=== PATIENT | female | born 1950 | race Caucasian/White ===

== ENCOUNTER 2017-09-07 12:18 | Emergency (ER) | payer MEDICARE, OTHER ==
--- NOTE | 2017-09-07 12:22 | EDM.PDOC ---
ED HPI GENERAL MEDICAL PROBLEM - General Chief Complaint: General Stated Complaint: HEADACHE CANT BREATHE Time Seen by Provider: 09/07/17 12:22 Source of Information: Reports: Patient, RN, RN Notes Reviewed History Limitations: Reports: Other - History of Present Illness INITIAL COMMENTS - FREE TEXT/NARRATIVE: Pt sent from outpt. 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 Pt has been receiving Remicade infusions without significant side effects for several years. Pt arrives to ER by wheelchair screaming and uncooperative, shouting, "help me, help me". Pt clearly hyperventilating, but alert, oriented x3 with GCS 15. Pt c/o severe headache, feels like her head will "pop off". Onset: Today, Sudden Duration: Constant Location: Reports: Head Quality: Reports: Ache, Pressure Severity: Severe Improves with: Reports: None Worsens with: Reports: None Head Pain Score (Numeric/FACES): 10 - Related Data Allergies Allergy/AdvReac Type Severity Reaction Status Date / Time aspirin Allergy Anaphylactic Verified 09/07/17 13:53 Shock cephalexin Allergy Rash Verified 09/07/17 13:53 NSAIDS (Non-Steroidal Allergy Hives Verified 09/07/17 13:53 Anti-Inflamma ondansetron Allergy Swelling Verified 09/07/17 13:53 Sulfa (Sulfonamide Allergy Rash Verified 09/07/17 13:53 Antibiotics) Past Medical History Musculoskeletal History: Reports: RA Social & Family History - Family History Family Medical History: Unobtainable - Living Situation & Occupation Living situation: Reports: , with Spouse Occupation: Retired ED ROS GENERAL - Review of Systems Review Of Systems: ROS reveals no pertinent complaints other than HPI. ED EXAM, GENERAL - Physical Exam Exam: See Below Exam Limited By: No Limitations General Appearance: Alert, Anxious, Obese Eye Exam: Bilateral Eye: EOMI, Normal Inspection, PERRL Ears: Normal External Exam, Normal Canal, Hearing Grossly Normal, Normal TMs Nose: Normal Inspection, Normal Mucosa, No Blood Throat/Mouth: Normal Voice, No Airway Compromise Head: Atraumatic, Normocephalic Neck: Normal Inspection, Supple, Non-Tender, Full Range of Motion Respiratory/Chest: No Respiratory Distress, Lungs Clear, Normal Breath Sounds, No Accessory Muscle Use, Chest Non-Tender Cardiovascular: Regular Rate, Rhythm, No Edema, Tachycardia GI/Abdominal: Normal Bowel Sounds, Soft, Non-Tender, No Distention. No: Guarding, Rigid, Rebound (Female) Exam: Deferred Rectal (Female) Exam: Deferred Extremities: Normal Inspection, Normal Range of Motion, Non-Tender, Normal Capillary Refill, No Pedal Edema Neurological: Alert, Oriented, CN II-XII Intact, Normal Cognition, No Motor/ Sensory Deficits Psychiatric: Anxious Skin Exam: Warm, Dry, Intact, Normal Color, No Rash EKG INTERPRETATION EKG Date: 09/07/17 Time: 12:48 Rhythm: Other (sinus tach) Rate (Beats/Min): 103 [place]: Normal P-Wave: Present QRS: Other (inferior Q-waves) ST-T: Depressed QT: Normal Comparison: NA - No Prior EKG Course - Vital Signs Last Recorded V/S: Last Vital Signs Temp 35.5 C 09/07/17 12:18 Pulse 103 H 09/07/17 12:18 Resp 32 H 09/07/17 12:18 BP 171/83 H 09/07/17 12:18 Pulse Ox 100 09/07/17 12:18 - Orders/Labs/Meds Orders: Active Orders 24 hr Category Date Time Status Blood Glucose Check, Bedside [RC] ONETIME Care 09/07/17 12:32 Active EKG 12 Lead [EKG Documentation Completion] [RC] STAT Care 09/07/17 12:32 Active Peripheral IV Care [RC] . DIRECTED Care 09/07/17 12:34 Active UA W/MICROSCOPIC [URIN] Stat Lab 09/07/17 13:01 Ordered Peripheral IV Insertion Adult [OM.PC] Stat Oth 09/07/17 12:32 Ordered Labs: Laboratory Tests 09/07/17 09/07/17 09/07/17 Range/Units 12:38 12:38 12:38 WBC 13.3 H (5.0-10.0) 10^3/uL RBC 4.23 (4.2-5.4) 10^6/uL Hgb 12.9 (12.0-16.0) g/dL Hct 39.9 (37.0-47.0) % MCV 94.3 (80-100) fL MCH 30.5 (27.0-34.0) pg MCHC 32.3 L (33.0-35.0) g/dL Plt Count 312 (150-450) 10^3/uL Neut % (Auto) 58.7 (42.2-75.2) % Lymph % (Auto) 34.8 (20.5-50.1) % [place] % (Auto) 5.0 (2-8) % Eos % (Auto) 0.7 L (1.0-3.0) % Baso % (Auto) 0.8 (0.0-1.0) % PT (9.0-12.0) SEC INR (0.9-1.2) APTT (22.0-34.0) SEC Sodium 138 (135-145) mmol/L Potassium 4.1 (3.6-5.0) mmol/L Chloride 106 (101-111) mmol/L Carbon Dioxide 21.0 (21.0-31.0) mmol/L Anion Gap 15.1 BUN 22 H (7-18) mg/dL Creatinine 0.7 (0.6-1.3) mg/dL Est Cr Clr Drug Dosing TNP Estimated GFR (MDRD) > 60 BUN/Creatinine Ratio 31.42 Glucose 227 H (74-105) mg/dL Calcium 9.2 (8.4-10.2) mg/dl Total Bilirubin 0.4 (0.2-1.0) mg/dL AST 54 H (10-42) IU/L ALT 32 (10-60) IU/L Alkaline Phosphatase 107 (42-121) IU/L Creatine Kinase 177 H (26-174) IU/L Troponin I < 0.02 (0.00-0.02) ng/ml C-Reactive Protein 0.8 (0.0-1.3) mg/dL Total Protein 8.5 H (6.7-8.2) g/dl Albumin 4.0 (3.2-5.5) g/dl Globulin 4.5 Albumin/Globulin Ratio 0.89 Urine Color (YELLOW) Urine Appearance (CLEAR) Urine pH (5.0-9.0) Ur Specific [place] (1.005-1.030) Urine Protein (NEGATIVE) Urine Glucose (UA) (NEGATIVE) Urine Ketones (NEGATIVE) Urine Occult Blood (NEGATIVE) Urine Nitrite (NEGATIVE) Urine Bilirubin (NEGATIVE) Urine Urobilinogen (0.2-1.0) mg/dL Ur Leukocyte Esterase (NEGATIVE) Urine RBC /HPF Urine WBC (0-5/HPF) /HPF Ur Epithelial Cells /HPF Amorphous Sediment (0/HPF) /HPF Urine Bacteria (0-FEW/HPF) /HPF Urine Mucus /LPF 09/07/17 09/07/17 Range/Units 13:01 13:05 WBC (5.0-10.0) 10^3/uL RBC (4.2-5.4) 10^6/uL Hgb (12.0-16.0) g/dL Hct (37.0-47.0) % MCV (80-100) fL MCH (27.0-34.0) pg MCHC (33.0-35.0) g/dL Plt Count (150-450) 10^3/uL Neut % (Auto) (42.2-75.2) % Lymph % (Auto) (20.5-50.1) % [place] % (Auto) (2-8) % Eos % (Auto) (1.0-3.0) % Baso % (Auto) (0.0-1.0) % PT 9.7 (9.0-12.0) SEC INR 1.0 (0.9-1.2) APTT 19.9 L (22.0-34.0) SEC Sodium (135-145) mmol/L Potassium (3.6-5.0) mmol/L Chloride (101-111) mmol/L Carbon Dioxide (21.0-31.0) mmol/L Anion Gap BUN (7-18) mg/dL Creatinine (0.6-1.3) mg/dL Est Cr Clr Drug Dosing Estimated GFR (MDRD) BUN/Creatinine Ratio Glucose (74-105) mg/dL Calcium (8.4-10.2) mg/dl Total Bilirubin (0.2-1.0) mg/dL AST (10-42) IU/L ALT (10-60) IU/L Alkaline Phosphatase (42-121) IU/L Creatine Kinase (26-174) IU/L Troponin I (0.00-0.02) ng/ml C-Reactive Protein (0.0-1.3) mg/dL Total Protein (6.7-8.2) g/dl Albumin (3.2-5.5) g/dl Globulin Albumin/Globulin Ratio Urine Color Yellow (YELLOW) Urine Appearance Slightly cloudy (CLEAR) Urine pH 6.0 (5.0-9.0) Ur Specific [place] 1.025 (1.005-1.030) Urine Protein >=300 H (NEGATIVE) Urine Glucose (UA) 500 H (NEGATIVE) Urine Ketones Trace H (NEGATIVE) Urine Occult Blood Trace-lysed H (NEGATIVE) Urine Nitrite Negative (NEGATIVE) Urine Bilirubin Negative (NEGATIVE) Urine Urobilinogen 0.2 (0.2-1.0) mg/dL Ur Leukocyte Esterase Negative (NEGATIVE) Urine RBC 0-5 /HPF Urine WBC 5-10 H (0-5/HPF) /HPF Ur Epithelial Cells Occasional /HPF Amorphous Sediment Few (0/HPF) /HPF Urine Bacteria Few (0-FEW/HPF) /HPF Urine Mucus Few H /LPF Meds: Medications Discontinued Medications Generic Name Dose Route Start Last Admin Trade Name Freq PRN Reason Stop Dose Admin Diazepam 10 mg 09/07/17 12:25 09/07/17 12:25 Valium IVPUSH 09/07/17 12:26 10 mg ONETIME ONE Administration Diazepam Confirm 09/07/17 12:24 09/07/17 13:24 Valium Administered 09/07/17 12:25 Not Given Dose 50 mg .ROUTE .STK-MED ONE Fentanyl 25 mcg 09/07/17 13:27 09/07/17 13:27 Sublimaze IVPUSH 09/07/17 13:28 Not Given ONETIME ONE Sodium Chloride 1,000 mls @ 999 mls/hr 09/07/17 12:34 09/07/17 12:25 Normal Saline IV 09/07/17 13:34 999 mls/hr .BOLUS ONE Administration Sodium Chloride 10 ml 09/07/17 12:33 09/07/17 12:25 Saline Flush FLUSH 10 ml ASDIRECTED PRN Administration Keep Vein Open - Radiology Interpretation Free Text/Narrative:: CT Head: acute intracranial hemorrhage, see Rad. report. Departure - Departure Time of Disposition: 13:23 Disposition: DC/Tfer to Acute Hospital 02 Condition: Critical Clinical Impression: Hemorrhagic cerebrovascular accident (CVA), New onset seizure - Discharge Information Referrals: Fidelia Boyd NP [Primary Care Provider] - Forms: ED Department Discharge, Interfacility Transfer EMTALA - My Orders Last 24 Hours: My Active Orders 09/07/17 12:32 Blood Glucose Check, Bedside [RC] ONETIME EKG 12 Lead [EKG Documentation Completion] [RC] STAT Peripheral IV Insertion Adult [OM.PC] Stat 09/07/17 12:34 Peripheral IV Care [RC] . DIRECTED 09/07/17 13:01 UA W/MICROSCOPIC [URIN] Stat - Assessment/Plan Last 24 Hours: My Active Orders 09/07/17 12:32 Blood Glucose Check, Bedside [RC] ONETIME EKG 12 Lead [EKG Documentation Completion] [RC] STAT Peripheral IV Insertion Adult [OM.PC] Stat 09/07/17 12:34 Peripheral IV Care [RC] . DIRECTED 09/07/17 13:01 UA W/MICROSCOPIC [URIN] Stat
[2017-09-07] MEDS ORDERED: Diazepam 5 MG/ML 10 ML Vial MDV ONE (12:24)
[2017-09-07] MEDS ORDERED: Diazepam 5 MG/ML 10 ML Vial MDV IVPUSH ONE (12:25)
[2017-09-07] MEDS ORDERED: Sodium Chloride 0.9% 10 ML Syringe FLUSH PRN (12:33)
[2017-09-07] MEDS ORDERED: Sodium Chloride 0.9% 1,000 ML IV ONE (12:34)
[2017-09-07 13:07] LABS: CHLORIDE,CL 106 mmol/L (101-111); SODIUM,NA 138 mmol/L (135-145)
--- NOTE | 2017-09-07 13:08 | CT ---
Clinical history: 67-year-old female transferred to the hospital Emergency Department with new onset seizure at infusion clinic. Scan technique: Volume acquisition of data emergency unenhanced CT scan of the head and brain obtaine d while the patient was lying supine on the Siemens multi slice scanner [place], [place]. All data archived in the PACS system for storage, and study friends bone/brain wi ndows). ER provider notified diagnosis at 1250 hours. 07 September 2017. Interpretation: Abnormal. Evidence of acute intracranial bleed i.e. blood at the base of the skull, around the [place] , that extends throughout the subarachnoid spaces of both cerebral hemispheres. 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 No supratentorial or posterior fossa mass lesion. No obvious arteriovenous malformation or thrombosed aneurysm. Uniformly thick bony calvarium without sign of skull fracture. Bilateral maxillary sinusitis. Mastoid sinuses clear. CONCLUSION: Subarachnoid hemorrhage.
[2017-09-07] MEDS ORDERED: fentaNYL 100 MCG/2 ML SDV IVPUSH ONE (13:27)
== END 2017-09-07 13:40 ==
LOC: DL.ED 12:18
DX: I62.9 Nontraumatic intracranial hemorrhage, unspecified (principal); R56.9 Unspecified convulsions; Z88.2 Allergy status to sulfonamides; Z88.8 Allergy status to other drugs, medicaments and biological substances; Z88.6 Allergy status to analgesic agent; Z88.1 Allergy status to other antibiotic agents
CPT/HCPCS: 36415; 70450; 80053; 81001; 82550; 84484; 85025; 85610; 85730; 86140; 93005; 96372; 99285; J3360; J7030; J7050; 93010

== ENCOUNTER → 2022-10-04 | Day surgery (SDC) | payer MEDICARE, OTHER ==
[~2022-10-04] MED LIST: Acetaminophen 325 MG Tab PO PRN; Acetaminophen/Codeine 300-30 MG Tab PO PRN; Apraclonidine 0.5% Ophth Soln 5 ML Bot EYERT ONE; Balanced Salt Solution Ophth Irrig 500 ML Bottle IOCULAR ONE; Cataract Ophth Solution EYERT ONE; Chondroitin Sulfate/Hyaluronate Sodium Ophth Inj 0.75 ML Syringe EYERT ONE; Dexamethasone 0.1% Ophth Soln 5 ML Bottle EYERT ONE; Dexamethasone/Tobramycin 0.1-0.3% Ophth Oint 3.5 GM Tube EYERT ONE; Diclofenac Sodium 0.1% Ophth Soln 5 ML Bottle EYERT ONE; Lidocaine 1% 30 ML SDV ONE; Moxifloxacin 0.5% Ophth Soln 3 ML Bottle EYERT ONE; Ondansetron 4 MG/2 ML SDV IVPUSH PRN; Phenylephrine 10% Ophth Soln 5 ML Bot EYERT PRN; Povidone-Iodine 5% Sterile Ophth Soln 30 ML Bottle EYERT ONE; Proparacaine 0.5% Ophth Soln 15 ML Bottle EYERT ONE; Sodium Chloride 0.9% 10 ML Syringe FLUSH PRN; Timolol Maleate 0.5% Ophth Soln 5 ML Bottle EYERT ONE; Tropicamide 1% Ophth Soln 15 ML Bottle EYERT ONE; Trypan Blue 0.06% Ophth Soln 0.5 ML Syringe EYERT ONE; Vancomycin 500 MG SDV EYERT ONE
== END | disposition home or self-care (01) ==
LOC: DL.SDS 09:00
PROVIDERS: ATTEND Ophthalmology
DX: E11.36 Type 2 diabetes mellitus with diabetic cataract (principal); H25.811 Combined forms of age-related cataract, right eye; M54.9 Dorsalgia, unspecified; G89.29 Other chronic pain; E78.5 Hyperlipidemia, unspecified; I10 Essential (primary) hypertension; K74.60 Unspecified cirrhosis of liver; M19.90 Unspecified osteoarthritis, unspecified site; E66.9 Obesity, unspecified; Z98.890 Other specified postprocedural states; Z68.30 Body mass index [BMI] 30.0-30.9, adult; Z79.899 Other long term (current) drug therapy; Z88.2 Allergy status to sulfonamides; Z88.8 Allergy status to other drugs, medicaments and biological substances; Z88.1 Allergy status to other antibiotic agents
CPT/HCPCS: 66982; A9270; J1642; J3370; V2632; J3490

== ENCOUNTER → 2022-10-18 | Day surgery (SDC) | payer MEDICARE, OTHER ==
[~2022-10-18] MED LIST changes: +Apraclonidine 0.5% Ophth Soln 5 ML Bot EYELF ONE; -Apraclonidine 0.5% Ophth Soln 5 ML Bot EYERT ONE; +Cataract Ophth Solution EYELF ONE; -Cataract Ophth Solution EYERT ONE; +Chondroitin Sulfate/Hyaluronate Sodium Ophth Inj 0.75 ML Syringe EYELF ONE; -Chondroitin Sulfate/Hyaluronate Sodium Ophth Inj 0.75 ML Syringe EYERT ONE; -Dexamethasone 0.1% Ophth Soln 5 ML Bottle EYERT ONE; -Dexamethasone/Tobramycin 0.1-0.3% Ophth Oint 3.5 GM Tube EYERT ONE; +Diclofenac Sodium 0.1% Ophth Soln 5 ML Bottle EYELF ONE; -Diclofenac Sodium 0.1% Ophth Soln 5 ML Bottle EYERT ONE; +Moxifloxacin 0.5% Ophth Soln 3 ML Bottle EYELF ONE; -Moxifloxacin 0.5% Ophth Soln 3 ML Bottle EYERT ONE; +Phenylephrine 10% Ophth Soln 5 ML Bot EYELF ONE; +Phenylephrine 10% Ophth Soln 5 ML Bot EYELF PRN; -Phenylephrine 10% Ophth Soln 5 ML Bot EYERT PRN; +Povidone-Iodine 5% Sterile Ophth Soln 30 ML Bottle EYELF ONE; -Povidone-Iodine 5% Sterile Ophth Soln 30 ML Bottle EYERT ONE; +Proparacaine 0.5% Ophth Soln 15 ML Bottle EYELF ONE; -Proparacaine 0.5% Ophth Soln 15 ML Bottle EYERT ONE; -Sodium Chloride 0.9% 10 ML Syringe FLUSH PRN; +Timolol Maleate 0.5% Ophth Soln 5 ML Bottle EYELF ONE; -Timolol Maleate 0.5% Ophth Soln 5 ML Bottle EYERT ONE; +Tropicamide 1% Ophth Soln 15 ML Bottle EYELF ONE; -Tropicamide 1% Ophth Soln 15 ML Bottle EYERT ONE; -Trypan Blue 0.06% Ophth Soln 0.5 ML Syringe EYERT ONE; +Vancomycin 500 MG SDV EYELF ONE; -Vancomycin 500 MG SDV EYERT ONE
== END | disposition home or self-care (01) ==
LOC: DL.SDS 09:19
PROVIDERS: ATTEND Ophthalmology
DX: E11.36 Type 2 diabetes mellitus with diabetic cataract (principal); H25.812 Combined forms of age-related cataract, left eye; M54.2 Cervicalgia; G89.29 Other chronic pain; E78.5 Hyperlipidemia, unspecified; I10 Essential (primary) hypertension; E66.9 Obesity, unspecified; M19.90 Unspecified osteoarthritis, unspecified site; M06.9 Rheumatoid arthritis, unspecified; Z68.30 Body mass index [BMI] 30.0-30.9, adult; Z86.73 Personal history of transient ischemic attack (TIA), and cerebral infarction without residual deficits; Z88.1 Allergy status to other antibiotic agents; Z88.8 Allergy status to other drugs, medicaments and biological substances
CPT/HCPCS: 00142; 66984; A9270; J1642; J3370; V2632; J3490